=== PATIENT | female | born 1990 | race Hispanic/Latino ===

== ENCOUNTER 2016-08-25 22:25 | Emergency (ER) | payer SELFPAY ==
[2016-08-25] MEDS ORDERED: KETOROLAC TROMETHAMINE 30 MG/ML VIAL ONE (22:59)
[2016-08-25] MEDS ORDERED: DIPHENHYDRAMINE 50 MG/ML VIAL ONE (22:59)
[2016-08-25] MEDS ORDERED: NORMAL SALINE 250 ML IV ONE (23:11)
--- NOTE | 2016-08-26 01:02 | ER NURSING DOCUMENTATION ---
Nurse's Notes [facility] Name:Viri Gar Age:26 yrs Sex:Female :1990 Arrival Date:08/25/2016 Time:22:25 Bed4 Private MD: Diagnosis:Migraine Headache Presentation: 08/25 22:30 Acuity: TATYANA 3 mk2 22:39 Presenting complaint: Patient states: Pt states she began with a headache about 10 mk2 hours ago in her frontal lobe area that feels "heavy." pt states she has vomited two times since the pain has began and it is similar to previous headaches she has had. Pt has light sensitivity. Pt has never taken prescribed medications for headaches in the past. Pt is aaox3. Transition of care: Home. Risk considerations: patient denies sudden onset of headache, syncopal episode, and "worst headache of life". Notified ED Physician of Dr. Cintron notified. Care prior to arrival: None. 22:39 Method Of Arrival: Walk In [facility] Triage Assessment: 22:41 Headache History: The patient has had previous headaches and this one is similar to mk2 previous episodes. General: Appears in no apparent distress, Behavior is cooperative, pleasant. Pain: Complains of pain in forehead Pain currently is 4 out of 10 on a pain scale. Pain began gradually, 10 hours. Pain: Pain does not radiate. EENT: Eyes pupils are equal and reactive. Neuro: Level of Consciousness is awake, alert, Oriented to person, place, time, event, Speech is normal. Cardiovascular: No deficits noted. Respiratory: Breath sounds are clear bilaterally. GI: Reports nausea, vomiting. Derm: No deficits noted. 08/26 01:00 Pain: Also complains of nausea. [facility] Historical: - Allergies: No known drug Allergies; - Home Meds: 1. None - PMHx: HEADACHES; - PSHx: None; - Tetanus: < 10 years. - Ebola Screening: : Patient negative for fever greater than or equal to 101.5 degrees Fahrenheit, and additional compatible Ebola Virus Disease symptoms. Patient denies exposure to infectious person. Patient denies travel to an Ebola-affected area in the 21 days before illness onset. No symptoms or risks identified at this time. . - Immunization history: Flu Vaccine < 1 year. - Social history: Smoking status: Patient states was never smoker of tobacco. Patient/guardian denies using alcohol, street drugs. Screenin/20 22:44 Infectious Disease Risk None. Abuse screen: Denies threats or abuse. Nutritional mk2 screening: No deficits noted. Assessment: 22:44 See Triage Assessment done by same RN. mk2 Vital Signs: 22:43 BP 117 / 79; Pulse 83; Resp 18; Temp 98.0; Pulse Ox 93% on R/A; Weight 74.84 kg; Height mk2 5 ft. 5 in. (165.10 cm); Pain 4/10; 23:04 Pulse Ox 97% ; mk2 23:04 Pain 4/10; mk2 08/26 00:59 mk2 08/25 22:43 Body Mass Index 27.46 (74.84 kg, 165.10 cm) mk2 00:59 Pt discharged by kailash, no dc vitals done. mk2 [place] Coma Score: 08/25 22:47 Eye Response: spontaneous(4). Verbal Response: oriented(5). Motor Response: obeys sc commands(6). Total: 15. ED Course: 22:26 Patient arrived in ED. ma1 22:29 Aguila Cintron MD is Attending Physician. sc 22:30 Angelique Hutson, SHAWNA is Primary Nurse. mk2 22:30 Triage completed. mk2 22:44 Arm band placed on Bed in low position Call Light in Reach Gowned HOB Elevated Side mk2 rails up x1. 22:56 Valuables Remains with patient. Pulse ox on. NIBP on. Warm blanket given. mk2 22:56 Inserted peripheral IV: 20 gauge in left antecubital area and blood collected. 2 performed by kailash. 23:37 [facility] is Referral Physician. sc 08/26 00:48 Discontinued IV intact, bleeding controlled, pressure dressing applied, No fc redness/swelling at site. Administered Medications: 08/25 22:54 Drug: NS 0.9% 1000 ml; Route: IV; Rate: bolus; Site: left antecubital; [facility] 08/26 01:01 Follow up: IV Status: Completed infusion; IV Intake: 1000ml [facility] 08/25 22:55 Drug: Toradol 30 mg; {Note: administered by Kailash.} Route: IVP; Site: left antecubital; [facility] 08/26 01:01 Follow up: Response: Marked relief of symptoms mk2 08/25 22:55 Drug: Benadryl 25 mg; {Note: administered by kailash.} Route: IVP; Site: left antecubital;mk2 08/26 01:01 Follow up: Response: Marked relief of symptoms mk2 08/25 22:55 Drug: Compazine 10 mg; {Note: administered by kailash.} Route: IVPB; Site: left [facility] antecubital; 08/26 01:01 Follow up: IV Status: Completed infusion; IV Intake: 250ml mk2 Intake: 01: IV: 1000ml; Total: 1000ml. mk2 01:01 IV: 250ml; Total: 1250ml. mk2 Outcome: 08/25 23:38 Discharge ordered by . co 08/26 00:59 Discharged to home ambulatory. mk2 Condition: improved Discharge Assessment: Patient awake, alert and oriented x 3. No cognitive and/or functional deficits noted. Patient verbalized understanding of disposition instructions. Discharge instructions given to patient, Instructed on discharge instructions, follow up and referral plans. medication usage. IV D/Robb 01:01 Patient left the ED. mk2 Signatures: Aguila Cintron MD MD sc Kruger, Meg, RN RN kailash beard Melissa ma1
--- NOTE | 2016-08-26 01:02 | ER PHYSICIAN DOCUMENTATION ---
Physician Documentation [facility] Name:Viri Gar Age:26 yrs Sex:Female :1990 Arrival Date:08/25/2016 Time:22:25 Bed4 Private MD: Aguila Hutchins Disposition: 08/25/16 23:38 Discharged to Home/Self Care. Impression: Migraine Headache. - Condition is Good. - Discharge Instructions: HEADACHE, Migraine (Classical). - Medical Reconciliation form form. - Follow up: [facility]; When: 2 - 3 days; Reason: Continuance of care. - Problem is an acute exacerbation. - Symptoms are resolved. HPI: 08/25 22:46 This 26 yrs old Unknown Female presents to ER via Walk In with complaints of Headache, sc Nausea/Vomiting. 22:46 The patient complains of pain to the top of head, forehead, left occipital area and sc right occipital area. The patient describes the headache as aching, constant, throbbing. Onset: The symptoms/episode began/occurred today. Associated signs and symptoms: Pertinent positives: nausea, vomiting. Severity of symptoms: At its worst the pain was severe. Headache History: The patient has had previous headaches and this one is similar to previous episodes. Risk factors for subarachnoid hemhorrage: no risk factors present. The patient has experienced similar episodes in the past, chronically, with the last episode occurring last week. Historical: - Allergies: No known drug Allergies; - Home Meds: 1. None - PMHx: HEADACHES; - PSHx: None; - Tetanus: < 10 years. - Ebola Screening: : Patient negative for fever greater than or equal to 101.5 degrees Fahrenheit, and additional compatible Ebola Virus Disease symptoms. Patient denies exposure to infectious person. Patient denies travel to an Ebola-affected area in the 21 days before illness onset. No symptoms or risks identified at this time. . - Immunization history: Flu Vaccine < 1 year. - Social history: Smoking status: Patient states was never smoker of tobacco. Patient/guardian denies using alcohol, street drugs. ROS: 22:47 Constitutional: Negative for fever, chills, and weight loss. sc Eyes: Negative for injury, pain, redness, and discharge. ENT: Negative for injury, pain, and discharge. Neck: Negative for injury, pain, and swelling. Cardiovascular: Negative for chest pain, palpitations, and edema. Respiratory: Negative for shortness of breath, cough, wheezing, and pleuritic chest pain. Back: Negative for injury and pain. 22:47 Skin: Negative for injury, rash, and discoloration. sc 22:47 Abdomen/GI: Positive for nausea, vomiting. 22:47 Neuro: Positive for headache. Exam: Constitutional: This is a well developed, well nourished patient who is awake, alert, and in no acute distress. Head/Face: Normocephalic, atraumatic. Eyes: Pupils equal round and reactive to light, extra-ocular motions intact. Lids and lashes normal. Conjunctiva and sclera are non-icteric and not injected. Cornea within normal limits. Periorbital areas with no swelling, redness, or edema. ENT: Nares patent. No nasal discharge, no septal abnormalities noted. Tympanic membranes are normal and external auditory canals are clear. Oropharynx with no redness, swelling, or masses, exudates, or evidence of obstruction, uvula midline. Mucous membranes moist. Neck: Trachea midline, no thyromegaly or masses palpated, and no cervical lymphadenopathy. Supple, full range of motion without nuchal rigidity, or vertebral point tenderness. No meningismus. Chest/axilla: Normal chest wall appearance and motion. Nontender with no deformity. No lesions are appreciated. Cardiovascular: Regular rate and rhythm with a normal S1 and S2. No gallops, murmurs, or rubs. Normal PMI, no JVD. No pulse deficits. Respiratory: Lungs have equal breath sounds bilaterally, clear to auscultation and percussion. No rales, rhonchi or wheezes noted. No increased work of breathing, no retractions or nasal flaring. Abdomen/GI: Soft, non-tender, with normal bowel sounds. No distension or tympany. No guarding or rebound. No evidence of tenderness throughout. Back: No spinal tenderness. No costovertebral tenderness. Full range of motion. Skin: Warm, dry with normal turgor. Normal color with no rashes, no lesions, and no evidence of cellulitis. MS/ Extremity: Pulses equal, no cyanosis. Neurovascular intact. Full, normal range of motion, negative Homans's, calves equal bilaterally. 22:47 Neuro: Awake and alert, GCS 15, oriented to person, place, time, and situation. wa Cranial nerves II-XII grossly intact. Motor strength 5/5 in all extremities. Sensory grossly intact. Cerebellar exam normal. Normal gait. Vital Signs: 22:43 BP 117 / 79; Pulse 83; Resp 18; Temp 98.0; Pulse Ox 93% on R/A; Weight 74.84 kg; Height 2 5 ft. 5 in. (165.10 cm); Pain 4/10; 23:04 Pulse Ox 97% ; mk2 23:04 Pain 4/10; 2 08/26 00:59 [facility] 08/25 22:43 Body Mass Index 27.46 (74.84 kg, 165.10 cm) [facility] 00:59 Pt discharged by kailash, no dc vitals done. [facility] [place] Coma Score: 08/25 22:47 Eye Response: spontaneous(4). Verbal Response: oriented(5). Motor Response: obeys wa commands(6). Total: 15. MDM: 22:29 Patient medically screened. wa 22:47 Differential diagnosis: migraine, tension headache, vasomotor headache. Neurological sc re-evaluation: normal neurological exam including cranial nerves, orientation, mentation, motor and sensory exam, cerebellar testing, GCS normal, and normal gait. Data reviewed: vital signs, nurses notes. Data reviewed: and as a result, I will continue to observe the patient. Counseling: I had a detailed discussion with the patient and/or guardian regarding: the historical points, exam findings, and any diagnostic results supporting the discharge/admit diagnosis, the need for outpatient follow up. 23:35 Medication response: The patient's symptoms have resolved. wa 08/25 22:44 Order name: Iv Saline Lock; Complete Time: 22:56 wa Dispensed Medications: 22:54 Drug: NS 0.9% 1000 ml; Route: IV; Rate: bolus; Site: left antecubital; [facility] 08/26 01:01 Follow up: IV Status: Completed infusion; IV Intake: 1000ml [facility] 08/25 22:55 Drug: Toradol 30 mg; {Note: administered by Kailash.} Route: IVP; Site: left antecubital; [facility] 08/26 01:01 Follow up: Response: Marked relief of symptoms [facility] 08/25 22:55 Drug: Benadryl 25 mg; {Note: administered by kailash.} Route: IVP; Site: left antecubital;2 08/26 01:01 Follow up: Response: Marked relief of symptoms 2 08/25 22:55 Drug: Compazine 10 mg; {Note: administered by kailash.} Route: IVPB; Site: left [facility] antecubital; 08/26 01:01 Follow up: IV Status: Completed infusion; IV Intake: 250ml [facility] Signatures: Aguila Cintron MD MD sc Kruger, Meg RN RN 2
== END 2016-08-26 01:02 | disposition home or self-care (01) ==
LOC: ER 22:25
DX: G43.009 Migraine without aura, not intractable, without status migrainosus (principal); R11.2 Nausea with vomiting, unspecified
CPT/HCPCS: 96365; 96366; 96375; 99284; J1200; J1885; J7050